=== PATIENT | male | born 1995 | race Hispanic/Latino ===

== ENCOUNTER 2022-11-01 11:11 | Emergency (ER) | payer OTHER ==
[~2022-11-01] VITALS: Ht 162.6 cm; Wt 80.8 kg
[2022-11-01] MEDS ORDERED: diazePAM 5MG TABLET PO ONE (14:00)
[2022-11-01] MEDS ORDERED: LIDOCAINE 5% (LIDODERM) PATCH TD ONE (14:00)
[2022-11-01 16:33] VITALS: BP 116/75; TEMP 98.3; O2SAT 99
== END 2022-11-01 17:06 | disposition home or self-care (01) ==
LOC: M ED 11:11
DX: M48.061 Spinal stenosis, lumbar region without neurogenic claudication (principal); M51.26 Other intervertebral disc displacement, lumbar region; M43.16 Spondylolisthesis, lumbar region; M43.18 Spondylolisthesis, sacral and sacrococcygeal region; Z88.6 Allergy status to analgesic agent